=== PATIENT | female | born 1945 | race Caucasian/White ===

== ENCOUNTER 2016-08-05 16:33 | Emergency (ER) | payer OTHER ==
[~2016-08-05] VITALS: Ht 152.4 cm; Wt 49.9 kg
[~2016-08-05 16:33] MED LIST: ATELVIA; DORZ10SO OP; FOLI1TAB19 PO; METH-1177 PO; OMEP20EC6 PO; PRED5TAB8 PO; TEMA15CA24 PO; [UNRECOGNIZED DRUG - CODE] PO
[2016-08-05 16:54] VITALS: BP 122/62
[2016-08-05] MEDS ORDERED: [UNRECOGNIZED DRUG - CODE] PO (17:03)
[2016-08-05] MEDS ORDERED: DYR50 PO (17:03)
--- NOTE | 2016-08-05 17:07 | NUR ---
Patient transferred to bed 3 via wheelchair by tech, accompanied by family. RN evaluating patient at bedside.
--- NOTE | 2016-08-05 17:09 | NUR ---
PATIENT BIB SON HERE FOR R FOOT PAIN/SWELLING X2WKS. SEEN LAST MONDAY AT [facility] FOR SAME COMPLAINT, RX HYDROCODON-ACETAMINOPHEN AND TRIAMTERENE. STS PAIN HAS NOT IMPROVED.HX LUPUS, OSTEOPOROSIS, RA, HTN . PT STATES SHE HAS NUMBNESS AND TINGLING SENSATION ON BOTH FOOT. DENIES N/V/D; SKIN IS PINK/WARM/DRY; AAOX4; LUNGS CLEAR BL; HR EVEN AND REGULAR; PT DENIES ANY FEVER, CP, SOB, OR COUGH AT THIS TIME; PATIENT STATES PAIN OF 10/10 AT THIS TIME; VSS; PATIENT POSITIONED FOR COMFORT; HOB ELEVATED; BEDRAILS UP X2; BED DOWN. ER MD MADE AWARE OF PT STATUS.
--- NOTE | 2016-08-05 17:37 | NUR ---
Dr. Mercedes evaluating patient at bedside.
[2016-08-05 17:55] VITALS: BP 122/62
--- NOTE | 2016-08-05 17:55 | NUR ---
Patient discharged with v/s stable. Written and verbal after care instructions given and explained. Patient alert, oriented and verbalized understanding of instructions. Ambulatory with steady gait. All questions addressed prior to discharge. ID band removed. Patient advised to follow up with PMD.Opportunity to ask questions provided and answered.
== END 2016-08-05 17:55 | disposition home or self-care (01) ==
LOC: MED 16:33
DX: M79.671 Pain in right foot (principal); I10 Essential (primary) hypertension; M19.90 Unspecified osteoarthritis, unspecified site; Z88.0 Allergy status to penicillin; Z88.6 Allergy status to analgesic agent
CPT/HCPCS: 81002; 99282